=== PATIENT | female | born 1975 | race African-American/Black ===

== ENCOUNTER 2017-01-31 19:45 | Emergency (ER) | payer SELFPAY ==
[~2017-01-31] VITALS: Ht 177.8 cm; Wt 88.0 kg
[~2017-01-31 19:45] MED LIST: AUGM875T PO; BUPR75TA PO; GLIM1 PO; GLUCTAB PO; HYDR-3533 PO; LORTA5 PO
[2017-01-31 19:49] VITALS: BP 138/91; PULSE 95; RESP 15; TEMP 98.5; O2SAT 97
--- NOTE | 2017-01-31 20:50 | PD ---
Physical Exam Time Seen by Provider: 20:46 Narrative 41yo F c/o lower abd pain x 1 week. Reports nausea w/o vomiting. Negative test 2 days ago. Denies vag dc, odor. Reports dysuria and pressure. Has been taking clindamycin and then started taking Bactrim 3 days ago. Denies fever. Reports diarrhea x 4 days. Patient stable. Patient seen in triage. Patient awaiting bed placement. Data Data Last Documented VS Vital Signs Date Time Temp Pulse Resp B/P Pulse Ox O2 Delivery O2 Flow Rate FiO2 01/31/17 19:49 98.5 95 15 138/91 97 Room Air [facility] Supervised Visit with HERNANDO: Sol Denny Jan 31, 2017 20:50
[2017-01-31] MEDS ORDERED: METF-382 PO (23:04)
[2017-01-31 23:18] LABS: BLOOD, URINE NEG (NEG); COMMENT (UR) CULT NOT INDICATED; CULTURE IF INDICATED CULT NOT INDICATED; GLUCOSE,URINE 1000 mg/dL (NEG); KETONE, URINE 10 mg/dL (NEG); NITRITE,URINE NEG (NEG); PH, URINE 5.5 (5.0-8.5); SQUAMOUS EPITHELIAL CELL URINE 1 /hpf (0-5); URINE COLOR YELLOW (YELLW/STRAW)
--- NOTE | 2017-01-31 23:36 | PD ---
HPI Chief Complaint: Abdominal Pain Time Seen by Provider: 23:21 Travel History International Travel<30 days: No Contact w/Intl Traveler<30days: No Traveled to known affect area: No History of Present Illness HPI 41-year-old female complains of low abdominal pain with nausea and diarrhea. Patient states that the pain started about 2 weeks ago. Patient states that the pain in cramping pain and stopping pain localized to lower abdomen pelvic area. Patient denies any pain radiation. Patient denies any fever chills. Patient complains of dysuria. Patient took leftover Bactrim DS and clindamycin for the past 5 days. Patient states that she has history of diabetes and has been taking metformin. Patient states that her blood sugar has been running high in the 500 range at home. Patient denies any headache. Patient denies any chest pain or shortness of breath. Patient denies any blood or mucus in the stool. Patient denies any back pain. PFSH Past Medical History Cancer: No Cardiovascular Problems: No Diabetes: Yes Patient Takes Glucophage: Yes Diminished Hearing: No Endocrine: Yes Genitourinary: No Hepatitis: No Hiatal Hernia: No Immune Disorder: No Musculoskeletal: No Neurologic: No Psychiatric: Yes (CLAUSTROPHOBIC) Reproductive: No Respiratory: Yes (SMOKES 1/2 PPD) Thyroid Disease: No ?: Not LMP: 3-17 : 2 Miscarriage: 1 : 1 Past Surgical History AICD: No Joint Replacement: No Pacemaker: No Other Surgery: Yes (NO HX OF ANESTHESIA) Social History Alcohol Use: Yes (occ) Tobacco Use: Yes ( 3/4 PPD) Substance Use: No Allergies-Medications (Allergen,Severity, Reaction): Coded Allergies: Flagyl (Verified Allergy, Severe, Swelling, 01/31/17) Penicillin (Verified Allergy, Severe, Swelling, 01/31/17) Reported Meds & Prescriptions Reported Meds & Active Scripts Active Ultram (Tramadol HCl) 50 Mg Tab 50 Mg PO Q6H PRN Mobic (Meloxicam) 15 Mg Tab 15 Mg PO DAILY Reported Metformin ER (Metformin HCl) 1,000 Mg Elvis 1,000 Mg PO DAILY With evening meal Review of Systems General / Constitutional: No: Fever Eyes: No: Visual changes HENT: No: Headaches Cardiovascular: No: Chest Pain or Discomfort Respiratory: No: Shortness of Breath Gastrointestinal: Positive: Nausea, Diarrhea, Abdominal Pain Genitourinary: Positive: Dysuria Musculoskeletal: No: Pain Skin: No Rash Neurologic: No: Weakness Psychiatric: No: Depression Endocrine: No: Polydipsia Hematologic/Lymphatic: No: Easy Bruising Physical Exam Narrative GENERAL: Well-nourished, well-developed patient. SKIN: Focused skin assessment warm/dry. HEAD: Normocephalic. EYES: No scleral icterus. No injection or drainage. NECK: Supple, trachea midline. No JVD or lymphadenopathy. CARDIOVASCULAR: Regular rate and rhythm without murmurs, gallops, or rubs. RESPIRATORY: Breath sounds equal bilaterally. No accessory muscle use. GASTROINTESTINAL: Abdomen soft, nondistended. Patient has mild to moderate tenderness on palpation lower abdomen. No rebound tenderness. No mass. MUSCULOSKELETAL: No cyanosis, or edema. BACK: Nontender without obvious deformity. No CVA tenderness. Neurologic exam normal. Data Data Last Documented VS Vital Signs Date Time Temp Pulse Resp B/P Pulse Ox O2 Delivery O2 Flow Rate FiO2 01/31/17 23:46 18 97 Room Air 01/31/17 19:49 98.5 95 138/91 Orders Urinalysis - C+S If Indicated (01/31/17 23:00) Complete Blood Count With Diff (01/31/17 23:28) Comprehensive Metabolic Panel (01/31/17 23:28) Prothrombin Time / Inr (Pt) (01/31/17 23:28) Act Partial Throm Time (Ptt) (01/31/17 23:28) Lipase (01/31/17 23:28) Beta Hydroxybutyrate (Acetone) (01/31/17 23:28) Iv Access Insert/Monitor (01/31/17 23:28) Ecg Monitoring (01/31/17 23:28) Oximetry (01/31/17 23:28) Beta Hcg (Quant/Titer) (01/31/17 23:28) Ct Abd/Pel W Iv Contrast(Rout) (02/01/17 23:28) Iohexol 350 Inj (Omnipaque 350 Inj) (02/01/17 01:29) Labs Laboratory Tests Test 01/31/17 01/31/17 22:50 23:35 Urine Color YELLOW Urine Turbidity CLEAR Urine pH 5.5 Urine Specific [place] 1.044 Urine Protein NEG mg/dL Urine Glucose (UA) 1000 mg/dL Urine Ketones 10 mg/dL Urine Occult Blood NEG Urine Nitrite NEG Urine Bilirubin NEG Urine Urobilinogen LESS THAN 2.0 MG/DL Urine Leukocyte Esterase NEG Urine RBC LESS THAN 1 /hpf Urine WBC LESS THAN 1 /hpf Urine Squamous Epithelial 1 /hpf Cells Microscopic Urinalysis Comment CULT NOT INDICATED White Blood Count 11.9 TH/MM3 Red Blood Count 4.49 MIL/MM3 Hemoglobin 12.9 GM/DL Hematocrit 40.1 % Mean Corpuscular Volume 89.2 FL Mean Corpuscular Hemoglobin 28.7 PG Mean Corpuscular Hemoglobin 32.2 % Concent Red Cell Distribution Width 14.2 % Platelet Count 309 TH/MM3 Mean Platelet Volume 9.0 FL Neutrophils (%) (Auto) 52.0 % Lymphocytes (%) (Auto) 38.7 % Monocytes (%) (Auto) 7.4 % Eosinophils (%) (Auto) 1.2 % Basophils (%) (Auto) 0.7 % Neutrophils # (Auto) 6.2 TH/MM3 Lymphocytes # (Auto) 4.6 TH/MM3 Monocytes # (Auto) 0.9 TH/MM3 Eosinophils # (Auto) 0.1 TH/MM3 Basophils # (Auto) 0.1 TH/MM3 CBC Comment DIFF FINAL Differential Comment Prothrombin Time 10.0 SEC Prothromb Time International 0.9 RATIO Ratio Activated Partial 25.0 SEC Thromboplast Time Sodium Level 134 MEQ/L Potassium Level 3.9 MEQ/L Chloride Level 99 MEQ/L Carbon Dioxide Level 22.5 MEQ/L Anion Gap 13 MEQ/L Blood Urea Nitrogen 12 MG/DL Creatinine 0.91 MG/DL Estimat Glomerular Filtration 83 ML/MIN Rate Random Glucose 415 MG/DL Calcium Level 8.5 MG/DL Total Bilirubin 0.6 MG/DL Aspartate Amino Transf 20 U/L (AST/SGOT) Alanine Aminotransferase 32 U/L (ALT/SGPT) Alkaline Phosphatase 97 U/L Total Protein 6.9 GM/DL Albumin 3.3 GM/DL Lipase 160 U/L Human Chorionic Gonadotropin, LESS THAN 1 Quant MIU/ML B-Hydroxybutyrate 0.23 MMOL/L MDM Medical Decision Making Medical Screen Exam Complete: Yes Emergency Medical Condition: Yes Interpretation(s) Last Impressions Abdomen/Pelvis CT 02/01/17 3721 Signed Impressions: Service Date/Time: Wednesday, February 01, 2017 01:05 - CONCLUSION: 1. No acute abnormality. 2. Fibroid uterus. 3. 1.8 cm left adnexal cyst likely ovarian in nature. Alexis Brewer Jr., MD 2:09 AM. CBC within normal limit. Sodium 134. Glucose 415. Beta hCG negative. UA is negative. Differential Diagnosis Impression diagnosis including UTI, pyelonephritis, cervicitis, PID, ovarian cyst, ovarian torsion, ectopic , colitis, nephrolithiasis. Narrative Course 41-year-old female with low abdominal pelvic pain. History of diabetes. Novolin R, 8 units IV given. Diagnosis Primary Impression: Uterine fibroid Qualified Code: D25.9 - Uterine leiomyoma, unspecified location Additional Impressions: Abdominal pain Qualified Code: R10.30 - Lower abdominal pain Hyperglycemia Patient Instructions: General Instructions Additional Instructions: Mobic as needed for pain. Follow-up with dermatologist. Return if worse. Med/Other Pt SpecificInfo: Prescription(s) given Scripts Tramadol (Ultram)50 Mg Tab50 Mg PO Q6H PRN (PAIN) #20 TAB Prov:Jefry Tinoco MD 02/01/17 Meloxicam (Mobic)15 Mg Tab15 Mg PO DAILY #20 TAB Prov:Jefry Tinoco MD 02/01/17 Disposition: 01 DISCHARGE HOME Condition: Stable Jefry Tinoco MD Jan 31, 2017 23:36
[2017-01-31 23:46] VITALS: RESP 18; O2SAT 97
[2017-01-31 23:56] LABS: AUTOMATED NEUTROPHIL # 6.2 TH/MM3 (1.8-7.7); BASOPHIL # 0.1 TH/MM3 (0-0.2); BASOPHIL % 0.7 % (0.0-2.0); EOSINOPHIL # 0.1 TH/MM3 (0-0.4); EOSINOPHIL % 1.2 % (0.0-4.0); HEMATOCRIT 40.1 % (35.0-46.0); HEMO FLAGS DIFF FINAL; LYMPH % 38.7 % (9.0-44.0); LYMPHOCYTE # 4.6 TH/MM3 (1.0-4.8); MEAN CELL VOLUME 89.2 FL (80.0-100.0); MEAN CORPUSCULAR HEMOGLOBIN 28.7 PG (27.0-34.0); MEAN CORPUSCULAR HGB CONC 32.2 % (32.0-36.0); MONO % 7.4 % (0.0-8.0); PLATELET COUNT 309 TH/MM3 (150-450); RED BLOOD COUNT 4.49 MIL/MM3 (4.00-5.30); RED CELL DISTRIBUTION WIDTH 14.2 % (11.6-17.2); WHITE BLOOD COUNT 11.9 TH/MM3 (4.0-11.0)
[2017-02-01 00:06] LABS: INTERNATIONAL NORMALIZED RATIO 0.9 RATIO
[2017-02-01 00:23] LABS: ANION GAP 13 MEQ/L (5-15); AST (GOT) 20 U/L (15-37); BICARBONATE 22.5 MEQ/L (21.0-32.0); BLOOD UREA NITROGEN 12 MG/DL (7-18); CHLORIDE 99 MEQ/L (98-107); GLOMERULAR FILTRATION RATE 83 ML/MIN (>89); POTASSIUM 3.9 MEQ/L (3.5-5.1); SODIUM (NA) 134 MEQ/L (136-145)
[2017-02-01 00:26] LABS: ALKALINE PHOSPHATASE 97 U/L (45-117); ALT (GPT) 32 U/L (10-53); BETA HCG QUANT LESS THAN 1 MIU/ML (0-5); BETA-HYDROXYBUTYRATE 0.23 MMOL/L (0.00-0.39); TOTAL BILIRUBIN ADULT 0.6 MG/DL (0.2-1.0)
[2017-02-01] MEDS ORDERED: IOHEXOL 350 MG/ML 10 ML VIAL (for RAD DIAG) IV ONE (01:29)
--- NOTE | 2017-02-01 01:43 | RADRPT ---
EXAM DATE/TIME: 02/01/2017 01:05 [facility] COMPARISON: CT ABDOMEN & PELVIS W CONTRAST, December 19, 2013, 2:49. INDICATIONS : Lower abdominal pain and nausea. IV CONTRAST: 96 cc Omnipaque 350 (iohexol) IV ORAL CONTRAST: No oral contrast ingested. RADIATION DOSE: 11.16 CTDIvol (mGy) MEDICAL HISTORY : Diabetes. SURGICAL HISTORY : None. ENCOUNTER: Initial ACUITY: 1 week PAIN SCALE: 5/10 LOCATION: lower quadrant TECHNIQUE: Volumetric scanning of the abdomen and pelvis was performed. Using automated exposure control and ad justment of the mA and/or kV according to patient size, radiation dose was kept as low as reasonably achievable to obtain optimal diagnostic quality images. FINDINGS: LOWER LUNGS: The visualized lower lungs are clear. LIVER: Homogeneous density without lesion. There is no dilation of the biliary tree. No calcified gallston es. SPLEEN: Normal size without lesion. PANCREAS: Within normal limits. KIDNEYS: Normal in size and shape. There is no mass, stone or hydronephrosis. ADRENAL GLANDS: Within normal limits. VASCULAR: There is no aortic aneurysm. BOWEL/MESENTERY: The stomach, small bowel, and colon demonstrate no acute abnormality. There is no free intraperitone al air or fluid. ABDOMINAL WALL: Within normal limits. RETROPERITONEUM: There is no lymphadenopathy. BLADDER: No wall thickening or mass. REPRODUCTIVE: There is an enlarged lobulated and heterogeneous uterus. This is stable. A 1.8 cm cystic structure is seen within the left adnexa. INGUINAL: There is no lymphadenopathy or hernia. MUSCULOSKELETAL: Within normal limits for patient age. CONCLUSION: 1. No acute abnormality. 2. Fibroid uterus. 3. 1.8 cm left adnexal cyst likely ovarian in nature. Alexis Brewer Jr., MD on February 01, 2017 at 1:38 Board Certified Radiologist. This report was verified electronically.
[2017-02-01] MEDS ORDERED: ULTR50TA5 PO (02:15)
[2017-02-01] MEDS ORDERED: MOBI15TA PO (02:15)
[2017-02-01] MEDS ORDERED: INSULIN HUMAN REGULAR 1,000 UNITS/10 ML VIAL IV PUSH ONE (02:30)
== END 2017-02-01 02:44 | disposition home or self-care (01) ==
LOC: NEPC 19:45
DX: D25.9 Leiomyoma of uterus, unspecified (principal); R10.30 Lower abdominal pain, unspecified; R19.7 Diarrhea, unspecified; R30.0 Dysuria; E11.65 Type 2 diabetes mellitus with hyperglycemia; F17.210 Nicotine dependence, cigarettes, uncomplicated
CPT/HCPCS: 74177; 80053; 81001; 82010; 83690; 84702; 85025; 85610; 85730; 96374; 99284; J1815; Q9967

== ENCOUNTER 2018-03-01 21:56 | Emergency (ER) | payer BC ==
[~2018-03-01] VITALS: Ht 175.3 cm; Wt 90.8 kg
[~2018-03-01 21:56] MED LIST changes: -AUGM875T PO; -BUPR75TA PO; -GLIM1 PO; -GLUCTAB PO; -HYDR-3533 PO; -LORTA5 PO; +METF-382 PO; +MOBI15TA PO; +TRAM50 PO
[2018-03-01 22:01] VITALS: BP 176/84; PULSE 103; RESP 18; TEMP 98.2; O2SAT 97
[2018-03-01 22:08] VITALS: BP 176/84; PULSE 103; RESP 18; TEMP 98.2; O2SAT 97
[2018-03-01] MEDS ORDERED: LIDOCAINE HCL 1% PF 30 ML VIAL INFIL ONE (22:30)
[2018-03-01] MEDS ORDERED: KETOROLAC TROMETHAMINE 30 MG/ML (IVP) VIAL IV PUSH ONE (22:30)
[2018-03-01] MEDS ORDERED: LIDOCAINE HCL 1% PF 30 ML VIAL ONE (22:33)
--- NOTE | 2018-03-01 22:37 | PD ---
HPI Chief Complaint: Skin Problem Time Seen by Provider: 22:29 Travel History International Travel<30 days: No Contact w/Intl Traveler<30days: No Traveled to known affect area: No History of Present Illness HPI 42-year-old female presents to the emergency department for complaint of left groin redness swelling and tenderness 3 days with history of diabetes. Patient does not know her blood sugars that she does not check them on a routine basis. Patient reportedly takes metformin as prescribed by a local research facility. Patient does not monitor her blood sugars. Patient states that at the research facility they have checked her blood work before and her hemoglobin A1c is either 11 or 13. Patient denies fever or chills. Patient reports area of redness and swelling has worsened over the past 3 days to the point that she has pain with ambulation. Patient denies other concerns or complaints. There is been no spontaneous drainage from the site. The patient rates her pain 10/10 in intensity. LMP: 5.15.18, denies . PFSH Past Medical History Narrative Medical Diabetes claustrophobia D&C occasional alcohol use and tobacco use; nursing notes reviewed Cancer: No Cardiovascular Problems: No Diabetes: Yes Patient Takes Glucophage: Yes Diminished Hearing: No Endocrine: Yes Genitourinary: No Hepatitis: No Hiatal Hernia: No Immune Disorder: No Musculoskeletal: No Neurologic: No Psychiatric: Yes (CLAUSTROPHOBIC) Reproductive: No Respiratory: Yes (SMOKES 1/2 PPD) Thyroid Disease: No Influenza Vaccination: No ?: Not LMP: 02/25/2018 : 2 Miscarriage: 1 : 1 Dilation and Curettage (D&C): Yes Past Surgical History AICD: No Joint Replacement: No Pacemaker: No Other Surgery: Yes (Myomectomy) Social History Alcohol Use: Yes (occ) Tobacco Use: No (quit 12 days ago) Substance Use: No Allergies-Medications (Allergen,Severity, Reaction): Coded Allergies: metronidazole (Unverified Allergy, Severe, Swelling, 05/28/17) niacin (Verified Allergy, Severe, rash, 03/01/18) penicillin G (Unverified Allergy, Severe, Swelling, 05/28/17) Reported Meds & Prescriptions Reported Meds & Active Scripts Active Clindamycin (Clindamycin HCl) 150 Mg Cap 300 Mg PO Q6H Tramadol (Tramadol HCl) 50 Mg Tab 50 Mg PO Q6H PRN Reported Metformin ER (Metformin HCl) 1,000 Mg Elvis 1,000 Mg PO DAILY With evening meal Review of Systems Except as stated in HPI: all other systems reviewed are Neg General / Constitutional: No: Fever, Chills HENT: No: Congestion Cardiovascular: No: Chest Pain or Discomfort Respiratory: No: Shortness of Breath Gastrointestinal: No: Nausea, Vomiting, Abdominal Pain Genitourinary: No: Dysuria, Flank Pain Musculoskeletal: No: Myalgias, Arthralgias Skin: Positive Lumps (Lower abdomen mons pubis) Neurologic: No: Weakness Psychiatric: No: Anxiety Hematologic/Lymphatic: No: Lymph Node Enlargement Physical Exam Narrative GENERAL: Well-developed well-nourished female no acute distress no respiratory distress SKIN: Warm and dry. HEAD: Normocephalic. EYES: No scleral icterus. No injection or drainage. NECK: Supple, trachea midline. No JVD or lymphadenopathy. CARDIOVASCULAR: Regular rate and rhythm without murmurs, gallops, or rubs. RESPIRATORY: Breath sounds equal bilaterally. No accessory muscle use. GASTROINTESTINAL: Abdomen soft, non-tender, nondistended. Mons pubis area of induration with central fluctuance and pointing no spontaneous drainage tender to palpation with erythema and increased warmth. MUSCULOSKELETAL: No cyanosis, or edema. BACK: Nontender without obvious deformity. No CVA tenderness. Data Data Last Documented VS Vital Signs Date Time Temp Pulse Resp B/P (MAP) Pulse Ox O2 Delivery O2 Flow Rate FiO2 03/01/18 23:10 91 18 177/87 (117) 98 Room Air 03/01/18 22:08 98.2 Orders Orders Basic Metabolic Panel (Bmp) (03/01/18 22:29) Complete Blood Count With Diff (03/01/18 22:29) Blood Culture (03/01/18 22:29) Wound Culture And Gram Stain (03/01/18 22:29) Lactic Acid (03/01/18 22:29) Ketorolac Inj (Toradol Inj) (03/01/18 22:30) Lidocaine Pf 1% Inj (Xylocaine-Mpf 1% In (03/01/18 22:30) Blood Glucose (03/01/18 22:29) Lidocaine Pf 1% Inj (Xylocaine-Mpf 1% In (03/01/18 22:33) Labs Laboratory Tests Test 03/01/18 22:45 White Blood Count 13.4 TH/MM3 Red Blood Count 4.30 MIL/MM3 Hemoglobin 12.6 GM/DL Hematocrit 37.6 % Mean Corpuscular Volume 87.4 FL Mean Corpuscular Hemoglobin 29.4 PG Mean Corpuscular Hemoglobin Concent 33.6 % Red Cell Distribution Width 13.3 % Platelet Count 381 TH/MM3 Mean Platelet Volume 9.8 FL Neutrophils (%) (Auto) 69.3 % Lymphocytes (%) (Auto) 22.8 % Monocytes (%) (Auto) 6.3 % Eosinophils (%) (Auto) 0.9 % Basophils (%) (Auto) 0.7 % Neutrophils # (Auto) 9.4 TH/MM3 Lymphocytes # (Auto) 3.1 TH/MM3 Monocytes # (Auto) 0.8 TH/MM3 Eosinophils # (Auto) 0.1 TH/MM3 Basophils # (Auto) 0.1 TH/MM3 CBC Comment AUTO DIFF Differential Total Cells Counted 100 Neutrophils % (Manual) 64 % Band Neutrophils % 1 % Lymphocytes % 28 % Monocytes % 4 % Eosinophils % 1 % Neutrophils # (Manual) 9.0 TH/MM3 Metamyelocytes 1 % Myelocytes 1 % Differential Comment FINAL DIFF MANUAL Platelet Estimate NORMAL Platelet Morphology Comment NORMAL Red Cell Morphology Comment NORMAL Blood Urea Nitrogen 10 MG/DL Creatinine 0.68 MG/DL Random Glucose 355 MG/DL Calcium Level 9.1 MG/DL Sodium Level 135 MEQ/L Potassium Level 3.5 MEQ/L Chloride Level 101 MEQ/L Carbon Dioxide Level 24.2 MEQ/L Anion Gap 10 MEQ/L Estimat Glomerular Filtration Rate 115 ML/MIN Lactic Acid Level 2.6 mmol/L [facility] Medical Decision Making Medical Screen Exam Complete: Yes Emergency Medical Condition: Yes Medical Record Reviewed: Yes Differential Diagnosis Cellulitis, abscess, folliculitis, carbuncle, furuncle, sepsis, uncontrolled DM Narrative Course IV access obtained specimens collected and sent for resulting; lidocaine ordered 1% without epinephrine; after informed verbal consent incision and drainage performed to the abscess site. Procedures Procedure Narrative After the risks and benefits were discussed the following procedure was performed: INCISION AND DRAINAGE OF ABSCESS: The area was prepped and was sterilely draped. A subcutaneous wheal of 1% Xylocaine with a total number 5 mL was used to anesthetize the area. The area was properly anesthetized. A number 11 scalpel was used to make a 1-cm incision across the area of the abscess. Cultures were obtained. The abscess was drained an irrigated with normal saline. Quarter inch iodoform packing was placed in the wound. Sterile dressing applied. Patient advised to have packing removed in two days. Sepsis Criteria SIRS Criteria (2 or more): Heart rate over 90, WBC > 78042, < 4000 or > 10% bands Sepsis Criteria (SIRS+source): Infect source susp/known (abscess) Severe Sepsis (+one): Lactate >2 Diagnosis Primary Impression: Abscess Referrals: Primary Care Physician 2 days Patient Instructions: General Instructions Med/Other Pt SpecificInfo: Prescription(s) given Scripts Clindamycin (Clindamycin) 150 Mg Cap 300 MG PO Q6H for Infection, #7 CAP 0 Refills Prov: Elisa Arriaga MD 03/01/18 Tramadol (Tramadol) 50 Mg Tab 50 MG PO Q6H Y for PAIN, #7 TAB 0 Refills Prov: Elisa Arriaga MD 03/01/18 Disposition: 01 DISCHARGE HOME Condition: Stable Elisa Arriaga MD March 01, 2018 22:37
[2018-03-01 23:10] VITALS: BP 177/87; PULSE 91; RESP 18; O2SAT 98
[2018-03-01 23:16] LABS: BICARBONATE 24.2 MEQ/L (21.0-32.0); CALCIUM 9.1 MG/DL (8.5-10.1)
[2018-03-01 23:17] LABS: AUTOMATED NEUTROPHIL # 9.4 TH/MM3 (1.8-7.7); BASOPHIL # 0.1 TH/MM3 (0-0.2); BASOPHIL % 0.7 % (0.0-2.0); EOSINOPHIL # 0.1 TH/MM3 (0-0.4); EOSINOPHIL % 0.9 % (0.0-4.0); HEMATOCRIT 37.6 % (35.0-46.0); HEMOGLOBIN 12.6 GM/DL (11.6-15.3); LYMPH % 22.8 % (9.0-44.0); LYMPHOCYTE # 3.1 TH/MM3 (1.0-4.8); MEAN CELL VOLUME 87.4 FL (80.0-100.0); MEAN CORPUSCULAR HEMOGLOBIN 29.4 PG (27.0-34.0); MEAN CORPUSCULAR HGB CONC 33.6 % (32.0-36.0); MEAN PLATELET VOLUME 9.8 FL (7.0-11.0); MONO % 6.3 % (0.0-8.0); MONOCYTE # 0.8 TH/MM3 (0-0.9); NEUT % 69.3 % (16.0-70.0); PLATELET COUNT 381 TH/MM3 (150-450); RED CELL DISTRIBUTION WIDTH 13.3 % (11.6-17.2); WHITE BLOOD COUNT 13.4 TH/MM3 (4.0-11.0)
[2018-03-01 23:20] LABS: CREATININE 0.68 MG/DL (0.50-1.00)
[2018-03-01 23:53] LABS: BANDS 1 % (0-6); LYMPHOCYTES 28 % (9-44); METAMYELOCYTES 1 % (0-1); MONOCYTES 4 % (0-8); MYELOCYTES 1 % (0-0); POLYS (SEG NEUTROPHILS) 64 % (16-70)
[2018-03-01] MEDS ORDERED: TRAM50TA PO (23:56)
[2018-03-01] MEDS ORDERED: CLIN150C14 PO (23:56)
[2018-03-02] MEDS ORDERED: traMADol HCL 50 MG TAB PO ONE
[2018-03-02] MEDS ORDERED: SODIUM CHLOR 0.9% 1000 ML INJ 1,000 ML IV ONE ×2
[2018-03-02 00:10] VITALS: BP 145/81; PULSE 94; RESP 18; O2SAT 96
[2018-03-02] MEDS ORDERED: INSULIN HUMAN REGULAR 1,000 UNITS/10 ML VIAL SQ ONE (00:15)
[2018-03-02 01:10] VITALS: BP 139/58
== END 2018-03-02 01:10 | disposition home or self-care (01) ==
LOC: PHED 21:56
DX: L02.214 Cutaneous abscess of groin (principal); B95.62 Methicillin resistant Staphylococcus aureus infection as the cause of diseases classified elsewhere; E11.9 Type 2 diabetes mellitus without complications; Z79.84 Long term (current) use of oral hypoglycemic drugs
CPT/HCPCS: 10060; 80048; 83605; 85007; 85027; 86403; 87040; 87070; 87186; 96361; 96372; 96374; 99284; J1815; J1885; J7030